=== PATIENT | male | born 1990 | race Caucasian/White ===

== ENCOUNTER 2017-11-11 07:14 | Day surgery (SDC) | payer OTHER ==
[2017-11-11] VITALS (16 sets, daily range): BP systolic 102–132; BP diastolic 57–85
[2017-11-11] MEDS: CEFAZOLIN SODIUM 1 GM VIAL IVP SCH ×2 (06:00→10:50)
[~2017-11-11 07:14] MED LIST: WATER FOR INJECTION,STERILE 5 ML VIAL INJ SCH
[2017-11-11] MEDS ORDERED: GLYCOPYRROLATE 0.2 MG/ML 5 ML VIAL ONE (08:49)
[2017-11-11] MEDS ORDERED: ONDANSETRON HCL 4 MG/2 ML VIAL ONE (08:49)
[2017-11-11] MEDS ORDERED: FENTANYL CITRATE PF 50 MCG/1 ML 2ML VIAL ONE (08:49)
[2017-11-11] MEDS ORDERED: MIDAZOLAM HCL 1 MG/ML 2ML VIAL ONE (08:49)
[2017-11-11] MEDS ORDERED: SUCCINYLCHOLINE 200MG/10ML SYR ONE (08:49)
[2017-11-11] MEDS ORDERED: NEOSTIGMINE METHYLSULFATE 1MG/ML IV ONE (08:49)
[2017-11-11] MEDS ORDERED: PROPOFOL 10 MG/ML 20ML VIAL IV ONE (08:49)
[2017-11-11] MEDS ORDERED: DEXAMETHASONE SOD PHOSPHATE 10MG/ML 1ML VIAL ONE (08:49)
[2017-11-11] MEDS ORDERED: ISOVUE-370 50ML VIAL IV ONE (09:19)
[2017-11-11] MEDS ORDERED: WATER FOR INJECTION,STERILE 20 ML VIAL ONE (09:52)
[2017-11-11] MEDS ORDERED: LACTATED RINGERS 1000ML 1,000 ML IV ONE (10:31)
[2017-11-11] MEDS ORDERED: OPIUM/BELLADONNA ALKALOIDS 1 EACH SUPP.RECT RC ONE (11:55)
[2017-11-11] MEDS ORDERED: PHENAZOPYRIDINE HCL 200 MG TABLET ONE (12:45)
== END 2017-11-11 13:40 | disposition home or self-care (01) ==
LOC: DAH 07:14
PROVIDERS: ATTEND Urology
DX: N13.30 Unspecified hydronephrosis (principal); N18.9 Chronic kidney disease, unspecified
CPT/HCPCS: 52332; 74420; 88300; A4354; A4358; A4510; A4600; C1758; C1769; C2617; J0330; J0690; J1100; J2250; J2405; J2704; J2710; J3010; J3490; J7030; J7120 ×2; Q9967

== ENCOUNTER 2018-03-10 07:48 | Day surgery (SDC) | payer OTHER ==
[2018-03-10] VITALS (13 sets, daily range): BP systolic 104–122; BP diastolic 41–61
[~2018-03-10] VITALS: Ht 190.5 cm; Wt 111.9 kg
[2018-03-10] MEDS ORDERED: AMOX500C2 PO (08:54)
[2018-03-10 09:03] LABS: MEAN CORPUSCULAR HEMOGLOBIN 29.6 pg (27.0-33.0); MEAN CORPUSCULAR HGB CONC 35.4 g/dL (32.0-36.0); MEAN CORPUSCULAR VOLUME 83.5 fL (79-99); NUCLEATED RED BLOOD CELLS 0.1 % (0.0-0.19); PLATELET COUNT (AUTO) 192 K/uL (130-400); RED BLOOD CELL COUNT(AUTO) 5.51 MIL/uL (4.50-6.20); RED CELL DISTRIBUTION WIDTH 12.7 % (11.0-15.5)
[2018-03-10] MEDS ORDERED: LACTATED RINGERS 1000ML 1,000 ML IV ONE (09:49)
[2018-03-10] MEDS ORDERED: CEFAZOLIN SODIUM 1 GM VIAL ONE (09:53)
[2018-03-10] MEDS ORDERED: ISOVUE-370 50ML VIAL IV ONE (09:59)
[2018-03-10] MEDS ORDERED: CEFAZOLIN SODIUM 1 GM VIAL IVP SCH (10:15)
[2018-03-10] MEDS ORDERED: FENTANYL CITRATE PF 50 MCG/1 ML 2ML VIAL ONE (10:25)
[2018-03-10] MEDS ORDERED: MIDAZOLAM HCL 1 MG/ML 2ML VIAL ONE (10:25)
[2018-03-10] MEDS ORDERED: PROPOFOL 10 MG/ML 20ML VIAL IV ONE (10:25)
[2018-03-10] MEDS ORDERED: OPIUM/BELLADONNA ALKALOIDS 1 EACH SUPP.RECT RC ONE (11:34)
[2018-03-10] MEDS ORDERED: PHENAZOPYRIDINE HCL 200 MG TABLET ONE (12:25)
== END 2018-03-10 12:55 | disposition home or self-care (01) ==
LOC: DAH 07:48
PROVIDERS: ATTEND Urology
DX: N13.0 Hydronephrosis with ureteropelvic junction obstruction (principal); Z98.890 Other specified postprocedural states; N18.9 Chronic kidney disease, unspecified
CPT/HCPCS: 36415; 52332; 74420; 85027; 88300; A4218; A4354; A4358; A4510; A4600; C1758; C1769; C2617; J0690; J2250; J2704; J3010; J7030; J7120; Q9967